=== PATIENT | female | born 1955 | race Caucasian/White ===

== ENCOUNTER 2024-04-23 11:08 | Emergency (ER) | payer MEDICARE, SELFPAY ==
[2024-04-23 11:48] VITALS: BP 96/64; PULSE 108; RESP 20; TEMP 36.8; O2SAT 96
[2024-04-23 12:01] LABS: EDSTREPNEGPOS1 Negative (Negative)
--- NOTE | 2024-04-23 12:04 | ED_ITS ---
HPI - URI/Sore Throat General Chief Complaint: Upper Respiratory Infection Stated Complaint: Cough/Headache/Fever Time Seen by Provider: 04/23/24 12:31 Source: patient and RN notes reviewed Mode of arrival: ambulatory Limitations: no limitations History of Present Illness HPI Narrative: 69-year-old female presents concern for 1 day history of fever chills, general weakness, chest congestion and cough. Reports she is currently battling lung cancer, she just finished chemo and is now on oral chemo drug. She called her oncologist who told her to come to an urgent care. MD elicited complaint: fever and cough Related Data Home Medications ?Medication ?Instructions ?Recorded ?Confirmed ?Last Taken ?Type levothyroxine 137 mcg tablet mcg 04/23/24 Unknown History osimertinib 80 mg tablet (Tagrisso) mg 04/23/24 Unknown History Allergies Allergy/AdvReac Type Severity Reaction Status Date / Time No Known Allergies Allergy Verified 04/23/24 11:36 Review of Systems Review of Systems: CONSTITUTIONAL: Reports malaise, fever. EYES: Denies visual changes, redness, or discharge. ENT: Reports rhinorrhea, congestion CARDIOVASCULAR: Denies chest pain, palpitations, or edema. RESPIRATORY: Reports cough and chest congestion. Denies dyspnea. GASTROINTESTINAL: Denies abdominal pain, nausea, vomiting, diarrhea SKIN: Denies rash or itching. MUSCULOSKELETAL: Reports myalgia. NEUROLOGIC: Denies headache. All systems reviewed & are unremarkable except as noted in HPI and below PMFSH Comments At time of signature, agree with nursing past medical, surgical, social and family history. There is no relevant family history pertinent to the presenting complaint Exam Narrative: GENERAL: Nontoxic-appearing, well-nourished, and in no acute distress. HEAD: Normocephalic EYES: PERRLA, conjunctivae clear ENT: Nares clear. Mucous membranes moist. TM pearly mac with dull light reflex bilaterally; no tragal tenderness. Oropharynx not erythematous without lesions. Tonsils not enlarged and without exudate, no drooling, no hoarseness, no trismus, uvula midline. NECK: Supple. No lymphadenopathy CHEST: Scattered rhonchi, otherwise Clear to auscultation, breath sounds equal. No wheezing, rales, or stridor. No respiratory distress, speaks in full sentences. HEART: Regular rate and rhythm. No murmur heard. SKIN: Warm, dry, no rash. NEURO: Alert and oriented x3. PSYCH: Normal mood and affect Course Course Emergency Course: Consulted with she left at Dr. Her Gleason office, the patient's oncologist office. She is going to facilitate an [facility] for the [facility] for [facility]. Patient is aware and will await the office is called. Patient is aware of diagnosis, understands and agrees to treatment plan. Anticipatory guidance given. Patient agrees to follow-up as directed and is aware of reasons to seek care at the emergency department. Portions of this record may have been created with voice recognition software Level of Care: Express Care Visit Vital Signs Vital signs: Vital Signs Temperature 98.2 F 04/23/24 11:48 Pulse Rate 108 H 04/23/24 11:48 Respiratory Rate 20 04/23/24 11:48 Blood Pressure 96/64 L 04/23/24 11:48 Pulse Oximetry 96 04/23/24 11:48 Oxygen Delivery Room Air 04/23/24 11:48 Temperature 98.2 F 04/23/24 11:48 Pulse Rate 108 H 04/23/24 11:48 Respiratory Rate 20 04/23/24 11:48 Blood Pressure 96/64 L 04/23/24 11:48 Pulse Oximetry 96 04/23/24 11:48 Oxygen Delivery Room Air 04/23/24 11:48 Reviewed. MDM - URI/Sore Throat MDM Narrative Medical decision making narrative: Differential diagnosis considered: Araujo virus, strep pharyngitis, allergic rhinitis, upper respiratory tract infection, sinusitis, rhinosinusitis, nasopharyngitis. viral pharyngitis, otitis media, otitis externa, pneumonia, bronchitis, viral cough syndrome, viral syndrome, and influenza. Exam findings show no acute concerns or changes; patient is non-toxic appearing and is in no distress. Patient is appropriate for outpatient treatment and follow-up. Lab Data Attestation: I reviewed the patient's lab results. Labs: Lab Results 04/23/24 Range/Units 11:48 POC Grp A Strep Screen Negative (Negative) Critical Care Time Critical Care Time Critical Care Time: No Discharge Plan Discharge Clinical Impression: Fever Patient Disposition: Home, Self-Care Condition: Stable Instructions: Fever in Adults (ED) Additional Instructions: The nurse from your oncologist office will be calling you today to set up an appointment for [facility] to [facility]. If anything changes or worsens in the meantime you should go to the emergency room. Please take frequent sips of fluids containing electrolytes Patient Language: Citizen Of [place] Prescriptions: No Action levothyroxine 137 mcg tablet Tagrisso 80 mg tablet Follow-up/Referrals: YENI,WILFREDO TUCKER [Primary Care Provider] - Time of Disposition: 12:40
[2024-04-23 12:14] LABS: EDINFLUASCREEN Negative (Negative); EDINFLUBSCREEN Negative (Negative)
== END 2024-04-23 12:45 | disposition home or self-care (01) ==
PROVIDERS: Emergency Provider Nurse Practitioner; PCP Nurse Practitioner Family
DX: R50.9 Fever, unspecified (principal); C34.90 Malignant neoplasm of unspecified part of unspecified bronchus or lung; Z79.60 Long term (current) use of unspecified immunomodulators and immunosuppressants
CPT/HCPCS: 87081; 87804; 87880; 99213; G0463